=== PATIENT | female | born 2000 | race Two or more races ===

== ENCOUNTER 2018-12-06 08:52 | Emergency (ER) | payer MEDICAID ==
[~2018-12-06] VITALS: Ht 170.2 cm; Wt 150.0 kg
[2018-12-06 08:58] VITALS: BP 142/76
== END 2018-12-06 11:05 | disposition left against medical advice (07) ==
LOC: ER 08:52
DX: Z53.21 Procedure and treatment not carried out due to patient leaving prior to being seen by health care provider (principal)

== ENCOUNTER 2019-10-25 10:19 | Emergency (ER) | payer MEDICAID, MEDICARE ==
[~2019-10-25] VITALS: Ht 162.6 cm; Wt 106.0 kg
[2019-10-25] MEDS ORDERED: ALPRAZOLAM 0.5 MG TABLET PO ONE (10:30)
[2019-10-25] MEDS ORDERED: OLANZAPINE 10MG TABLET PO STA (10:36)
[2019-10-25 11:48] LABS: CLARITY URINE CLEAR (CLEAR); COLOR URINE YELLOW (YELLOW); KETONES URINE NEGATIVE (NEGATIVE); LEUKOCYTE ESTERASE URINE NEGATIVE (NEGATIVE); NITRITE URINE NEGATIVE (NEGATIVE); OCCULT BLOOD URINE NEGATIVE (NEGATIVE); PROTEIN URINE NEGATIVE (NEGATIVE); SPECIFIC GRAVITY URINE 1.026 (1.005-1.030)
[2019-10-25 12:03] LABS: *AMPHETAMINES SCREEN URINE NEGATIVE (NEGATIVE); *BARBITURATES SCREEN URINE NEGATIVE (NEGATIVE); *BENZODIAZEPINES SCREEN URINE NEGATIVE (NEGATIVE); *COCAINE SCREEN URINE NEGATIVE (NEGATIVE)
[2019-10-25 12:04] LABS: METHADONE URINE SCREEN NEGATIVE (NEGATIVE); OPIATES URINE SCREEN NEGATIVE (NEGATIVE); PHENCYCLIDINE URINE SCREEN NEGATIVE (NEGATIVE)
[2019-10-25 12:05] LABS: CANNABINOID URINE SCREEN PRESUMTIVE POSITIVE (NEGATIVE)
[2019-10-25 12:16] LABS: BASOPHILS % 0.4 % (0.0-2.0); EOSINOPHILS % 0.7 % (0.0-5.0); HEMATOCRIT. 35.7 % (36.0-48.0); HEMOGLOBIN. 11.8 g/dL (12.0-16.0); LYMPHOCYTES % 35.9 % (20.0-50.0); MEAN CORPUSCULAR HEMOGLOBIN 29.6 pg (28.0-32.0); MEAN PLATELET VOLUME 7.9 fl (7.4-10.4); MONOCYTES % 8.3 % (2.0-8.0); NEUTROPHILS % 54.7 % (40.0-76.0); PLATELET 222 x1000/uL (130-400); RED BLOOD CELL COUNT 3.97 mill/uL (4.2-5.4); RED CELL DISTRIBUTION WIDTH 14.3 % (11.6-14.6)
[2019-10-25 12:21] LABS: CHLORIDE 110 mEq/L (98-107)
[2019-10-25 12:25] LABS: ETHANOL BLOOD < 10 mg/dL
[2019-10-25 17:30] VITALS: BP 123/73
== END 2019-10-25 21:11 | disposition home or self-care (01) ==
LOC: ER 10:19
DX: R45.851 Suicidal ideations (principal); R45.0 Nervousness; F31.9 Bipolar disorder, unspecified; F41.9 Anxiety disorder, unspecified; Z59.0 Homelessness; Z88.0 Allergy status to penicillin
CPT/HCPCS: 36415; 80053; 80305; 80320; 81003; 81025; 85025; 99285; G0480